=== PATIENT | female | born 1945 | race Caucasian/White ===

== ENCOUNTER 2016-10-26 11:59 | Emergency (ER) | payer MEDICARE ==
[~2016-10-26] VITALS: Ht 170.2 cm; Wt 95.0 kg
[~2016-10-26 11:59] MED LIST: AMITRIPTYLIN10 MG PO; AMLODIPINE BESYL5 MG PO; B COMPLE2 PO; B12-ACTIVE1 MG PO; CO Q 10100 MG PO; EQL VITAMIN PO; ESOMEPRAZOLE MA40 MG PO; FLONASE NASAL50 MCG; FLUOCINOLONE A0.011 OT; HYZAAR1 TA2 PO; LIPITOR40 M1 PO; MAGNESIUM 250 M1 TAB; MONTELUKAST SOD10 MG PO; POTASSIUM CHLO10 ME4 PO; SERTRALINE HCL100 MG PO; SLOW-MAG PO; VAGIFEM10 MCG VA; VITAMIN E100 UNI1 PO; [UNRECOGNIZED DRUG - OTHER] PO; [UNRECOGNIZED DRUG - OTHER] PO
[2016-10-26 13:00] LABS: HEMATOCRIT 43.2 % (37.0-47.0); HEMOGLOBIN 15.3 g/dl (12.0-16.0); IMMATURE GRANULOCYTES 0.2 % (0.0-1.0); MEAN CELL VOLUME 84.7 fL CALC (80.0-100.0); MEAN CORPUSCULAR HGB CONC 35.4 g/L CALC (32.0-36.0); NEUT# 4.8 thou/uL (2.00-7.15); RED BLOOD COUNT 5.1 mill/uL (4.20-5.60); RED CELL DISTRI WIDTH 13.5 % (11.5-15.5)
[2016-10-26 13:25] LABS: ALBUMIN 4.7 g/dL (3.2-5.0); ALKALINE PHOSPHATASE 103 u/l (38-126); ANION GAP 17 (6-22 (CALC)); BILIRUBIN, TOTAL 0.6 mg/dL (0.0-1.4); BUN 12 mg/dL (8-23); BUN/CREATININE RATIO 17 (12-20 (CALC)); CALCIUM 10.1 mg/dL (8.4-10.2); CARBON DIOXIDE 28 mmol/l (22-30); CHLORIDE 102 mmol/l (95-108); CREATININE 0.7 mg/dL (0.5-1.0); GFR > 60 ML/MIN (>=60 (CALC)); GFR FOR AFR.AMER. > 60 ML/MIN (>=60 (CALC)); GLUCOSE 104 mg/dL (82-115); POTASSIUM 3.6 mmol/l (3.5-5.1); SGOT/AST 23 u/l (9-36); SGPT/ALT 39 u/l (11-66); SODIUM 143 mmol/l (137-146); TOTAL PROTEIN 8.1 g/dL (6.3-8.2)
[2016-10-26 13:41] LABS: BARBITURATES NEGATIVE (NEGATIVE); COCAINE NEGATIVE (NEGATIVE); METHADONE NEGATIVE (NEGATIVE); TETRAHYDROCANNABIONOL NEGATIVE (NEGATIVE); TRICYLIC ANTIDEPRESSANTS POSITIVE (NEGATIVE)
[2016-10-26 13:42] LABS: OXCYCODONE NEGATIVE (NEGATIVE)
[2016-10-26 13:42] LABS: ETHYL ALCOHOL 0 mg/dl (0-30)
[2016-10-26 15:40] VITALS: BP 170/92
== END 2016-10-26 15:49 ==
LOC: ED 11:59
PROVIDERS: Emergency Medicine
DX: R45.851 Suicidal ideations (principal); I10 Essential (primary) hypertension

== ENCOUNTER 2018-01-30 12:27 | Emergency (ER) | payer MEDICARE, OTHER ==
[~2018-01-30] VITALS: Ht 170.2 cm; Wt 100.0 kg
[~2018-01-30 12:27] MED LIST changes: +AMLODIPINE10 MG PO; +BROMOCRIPTIN2.5 M1 PO; +BUSPIRONE15 MG PO; +CALCIUM PO; +E400400 UNIT PO; +ESTRADIOL0.5 MG PO; +HYDROCHLOROT25 MG PO; +MOTRIN200 MG PO; +NASONEX50 MCG/ACT NAB; +PANTOPRAZOLE SO40 M1 PO; +PRAZOSIN HCL1 M1 PO; +RIZATRIPTAN BEN10 MG PO; +SIMVASTATIN40 MG PO; +SUPER B W/C PO; +TOPIRAMATE ER50 MG PO; +TREXIMET1 TAB PO; +VENLAFAXINE75 M2 PO; +VISTARIL25 MG PO; +[UNRECOGNIZED DRUG - OTHER] PO
[2018-01-30] MEDS ORDERED: AMLODIPINE BESYL5 MG PO (12:43)
[2018-01-30] MEDS ORDERED: ESOMEPRAZOLE MA40 MG (12:43)
[2018-01-30] MEDS ORDERED: LOSARTAN POTASS1 TA2 PO (12:43)
[2018-01-30] MEDS ORDERED: SERTRALINE HCL100 MG PO (12:44)
[2018-01-30] MEDS ORDERED: MICRO-K10 MEQ PO (12:44)
[2018-01-30] MEDS ORDERED: DELTASONE20 MG PO (13:16)
[2018-01-30] MEDS ORDERED: EPIPEN 2-P0.3 MG/0.3 SC (13:16)
[2018-01-30 13:40] VITALS: BP 169/80
== END 2018-01-30 13:40 | disposition home or self-care (01) ==
LOC: ED 12:27
DX: T63.441A Toxic effect of venom of bees, accidental (unintentional), initial encounter (principal); R22.0 Localized swelling, mass and lump, head; Y92.007 Garden or yard of unspecified non-institutional (private) residence as the place of occurrence of the external cause

== ENCOUNTER 2018-04-13 11:39 | Emergency (ER) | payer MEDICARE, OTHER ==
[~2018-04-13] VITALS: Ht 170.2 cm; Wt 80.0 kg
[~2018-04-13 11:39] MED LIST changes: +DELTASONE20 MG PO; +EPIPEN 2-P0.3 MG/0.3; +EPIPEN 2-P0.3 MG/0.3 SC; +ESOMEPRAZOLE MA40 MG; +LOSARTAN POTASS1 TA2 PO; +MICRO-K10 MEQ PO
[2018-04-13] MEDS ORDERED: MEDDOSEPAK PO (13:22)
[2018-04-13] MEDS ORDERED: DELTASONE20 MG PO (13:23)
[2018-04-13 13:28] VITALS: BP 171/74
== END 2018-04-13 13:43 | disposition home or self-care (01) ==
LOC: ED 11:39
DX: T63.441A Toxic effect of venom of bees, accidental (unintentional), initial encounter (principal); Y92.007 Garden or yard of unspecified non-institutional (private) residence as the place of occurrence of the external cause

== ENCOUNTER 2018-06-28 18:19 | Emergency (ER) | payer MEDICARE, OTHER ==
[~2018-06-28] VITALS: Ht 167.6 cm; Wt 97.3 kg
[~2018-06-28 18:19] MED LIST changes: -EPIPEN 2-P0.3 MG/0.3; +EPIPEN 2-P0.3 MG/0.3 IJ; +MEDDOSEPAK PO
[2018-06-28] MEDS ORDERED: VENLAFAXINE HCL75 M1 PO (19:16)
[2018-06-28] MEDS ORDERED: TOPAMAX50 MG PO (19:17)
[2018-06-28] MEDS ORDERED: AMLODIPINE BESYL5 MG PO (19:18)
[2018-06-28] MEDS ORDERED: PRAZOSIN HCL1 M1 PO (19:19)
[2018-06-28] MEDS ORDERED: SLOW-MAG PO (19:24)
[2018-06-28 19:35] VITALS: BP 149/74
== END 2018-06-28 19:35 | disposition home or self-care (01) ==
LOC: ED 18:19
DX: T63.441A Toxic effect of venom of bees, accidental (unintentional), initial encounter (principal); I10 Essential (primary) hypertension; E78.00 Pure hypercholesterolemia, unspecified

== ENCOUNTER 2018-09-24 09:00 | Outpatient (RCR) | payer MEDICARE, OTHER ==
--- NOTE | 2018-09-04 08:52 | NUR ---
Pt. called. Will not be here for IOP rest of the week. Has an appt. with pain management 09/04/18; out of town company rest of the week.
--- NOTE | 2018-09-11 09:09 | NUR ---
Pt. called in sick. Will be in 09/12/18.
[2018-09-18 09:50] VITALS: BP 147/86
--- NOTE | 2018-09-20 11:58 | NUR ---
Pt. in for treatment team and IOP. Pt. is clean and neat. Alert and oriented times 3. Mood happy. Affect bright. Pt. states "I'm back in the pool and doing much much better. I saw an old friend and I feel skinny and attractive again." Pt. states she is getting alot out of the program. Pt. denies any suicidal ideations. Pt. is compliant with her medications. Pt. states she has no medication changes. Pt. to continue with her current treatment plan. Pt. is attending IOP 3 times a week with monthly 1:1. Will follow up with the Pt. in one month. Treatment team is concluded.
[~2018-09-24 09:00] MED LIST changes: +MOTRIN800 MG PO; +TIZANIDINE HCL4 MG PO; +TOPAMAX50 MG PO; +VENLAFAXINE HCL75 M1 PO
== END 2018-09-26 23:59 | disposition still patient (30) ==
LOC: SLIP3 09:00
PROVIDERS: ATTEND Specialist
DX: F33.0 Major depressive disorder, recurrent, mild (principal); F41.1 Generalized anxiety disorder

== ENCOUNTER 2020-07-01 07:38 | Day surgery (SDC) | payer MEDICARE, OTHER ==
[~2020-07-01] VITALS: Ht 167.6 cm; Wt 100.7 kg
[~2020-07-01 07:38] MED LIST changes: +CLINDAMYCIN HC150 MG PO; +DIOVAN HCT160 MG/25 PO; +EFFEXOR75 MG PO; +HYDROXYZ HCL25 MG PO; +METOPROLOL SUCC50 MG PO; +MINIPRESS1 MG PO; +MULTIVITAMIN PO; +NASONEX50 MCG/ACT; +SUPER B COM2 PO; +VENLAFAXINE37.5 M2 PO; +VITAMIN E400 UNIT PO
[2020-07-01 10:00] VITALS: BP 130/70
== END 2020-07-01 11:38 | disposition home or self-care (01) ==
LOC: ENDO 07:38 → ORM 08:45 → ENDO 08:45
PROVIDERS: ATTEND Surgery
PROC: 0DB78ZX Excision of Stomach, Pylorus, Via Natural or Artificial Opening Endoscopic, Diagnostic (ICD-10-PCS; principal; 2020-07-01)
DX: K29.60 Other gastritis without bleeding (principal); K44.9 Diaphragmatic hernia without obstruction or gangrene; Z20.828 Contact with and (suspected) exposure to other viral communicable diseases

== ENCOUNTER 2022-12-18 07:43 | Day surgery (SDC) | payer MEDICARE, OTHER ==
[~2022-12-18] VITALS: Ht 167.6 cm; Wt 102.1 kg
[~2022-12-18 07:43] MED LIST changes: +DICYCLOMINE10 MG PO; +FENOFIBRATE145 MG PO; +HYDROXYZINE HYD25 MG PO; +METRONIDAZOLE500 MG PO; +OMEPRAZOLE DR20 MG PO; +PREVALITE4 G1 PO; +PRILOSEC OTC20 MG PO; +RIZATRIPTAN BEN10 M1 PO
[2022-12-18 11:17] VITALS: BP 144/94
== END 2022-12-18 10:54 | disposition home or self-care (01) ==
LOC: ENDO 07:43 → ORM 10:20 → ENDO 10:54 → ORM 11:35
PROVIDERS: ATTEND Internal Medicine Gastroenterology
PROC: 0DBH8ZX Excision of Cecum, Via Natural or Artificial Opening Endoscopic, Diagnostic (ICD-10-PCS; principal; 2022-12-18)
PROC: 0DBM8ZX Excision of Descending Colon, Via Natural or Artificial Opening Endoscopic, Diagnostic (ICD-10-PCS; 2022-12-18)
PROC: 0DB78ZX Excision of Stomach, Pylorus, Via Natural or Artificial Opening Endoscopic, Diagnostic (ICD-10-PCS; 2022-12-18)
DX: D12.0 Benign neoplasm of cecum (principal); D12.4 Benign neoplasm of descending colon; K64.8 Other hemorrhoids; K57.30 Diverticulosis of large intestine without perforation or abscess without bleeding; K29.50 Unspecified chronic gastritis without bleeding; K25.9 Gastric ulcer, unspecified as acute or chronic, without hemorrhage or perforation; K22.2 Esophageal obstruction; K44.9 Diaphragmatic hernia without obstruction or gangrene; K58.0 Irritable bowel syndrome with diarrhea; K21.9 Gastro-esophageal reflux disease without esophagitis; I10 Essential (primary) hypertension; E78.5 Hyperlipidemia, unspecified; F32.9 Major depressive disorder, single episode, unspecified; D35.2 Benign neoplasm of pituitary gland; Z79.899 Other long term (current) drug therapy

== ENCOUNTER 2023-04-09 09:00 | Day surgery (SDC) | payer MEDICARE, OTHER ==
[~2023-04-09] VITALS: Ht 167.6 cm; Wt 104.3 kg
[~2023-04-09 09:00] MED LIST changes: +DICYCLOMINE HYD10 MG PO; +EPIPEN 2-P0.3 MG/0.3; -EPIPEN 2-P0.3 MG/0.3 IJ; +PHENTERMINE37.5 MG PO
[2023-04-09 12:27] VITALS: BP 150/68
== END 2023-04-09 12:26 | disposition home or self-care (01) ==
LOC: ENDO 09:00 → ORM 11:15 → ENDO 12:26 → ORM 13:10
PROVIDERS: ATTEND Internal Medicine Gastroenterology
PROC: 0D738ZZ Dilation of Lower Esophagus, Via Natural or Artificial Opening Endoscopic (ICD-10-PCS; principal; 2023-04-09)
PROC: 0DB78ZX Excision of Stomach, Pylorus, Via Natural or Artificial Opening Endoscopic, Diagnostic (ICD-10-PCS; 2023-04-09)
DX: K22.2 Esophageal obstruction (principal); K44.9 Diaphragmatic hernia without obstruction or gangrene; K21.9 Gastro-esophageal reflux disease without esophagitis; K31.9 Disease of stomach and duodenum, unspecified; I10 Essential (primary) hypertension; E78.5 Hyperlipidemia, unspecified; K58.0 Irritable bowel syndrome with diarrhea; Z87.11 Personal history of peptic ulcer disease; Z79.899 Other long term (current) drug therapy